=== PATIENT | male | born 1940 | race Caucasian/White ===

== ENCOUNTER 2017-06-14 09:03 | Inpatient (IN) | payer MEDICARE, OTHER, BC ==
[~2017-06-14] VITALS: Ht 172.7 cm; Wt 92.0 kg
[~2017-06-14 09:03] MED LIST: ASPI-183 PO; AZIT500T2 PO; COEN1CAP PO; FLUT1SPR5 EACH NARE; LACTCAP8 PO; LIPI10TA PO; MULTTAB67 PO; PRED10PA2 PO; PROC90TA PO; TIMO0.5S30 RIGHT EYE; VENTAER INH; [UNRECOGNIZED DRUG - OTHER]
[2017-06-14 09:08] VITALS: BP 153/52; PULSE 35; RESP 17; TEMP 97.7; O2SAT 97
--- NOTE | 2017-06-14 10:03 | RADRPT ---
EXAM DATE/TIME: 06/14/2017 09:34 [place] COMPARISON: CHEST PA & LAT, March 23, 2017, 8:26. INDICATIONS : Chest pain MEDICAL HISTORY : SURGICAL HISTORY : None. ENCOUNTER: Initial ACUITY: 1 day PAIN SCORE: 0/10 LOCATION: chest FINDINGS: PA and lateral views of the chest demonstrate the lungs to be symmetrically aerated without evidence of mass, infiltrate or effusion. There is hypertension bilaterally. The cardiomediastinal contours a re unremarkable. Osseous structures are intact. No significant changes compared to the prior study. CONCLUSION: No acute disease. No significant change has occurred. Rudy Tijerina MD on June 14, 2017 at 10:01 Board Certified Radiologist. This report was verified electronically.
[2017-06-14 10:07] VITALS: O2SAT 100
--- NOTE | 2017-06-14 10:10 | PD ---
HPI Chief Complaint: Cardiac Complaint Time Seen by Provider: 10:02 Travel History International Travel<30 days: No Contact w/Intl Traveler<30days: No Traveled to known affect area: No History of Present Illness HPI 76-year-old male presents with one-month history of shortness of breath. He states that his heart rate has also been low. He states he went to Dr. Nix's office today and was advised to come straight here. Paperwork from the office states that patient has a complete heart block and there is concern with his aortic stenosis that he is also having issues with heart failure. Patient denies any other concurrent complaints other than generalized weakness. He feels worse when he moves around. He denies other modifying factors. Quality is hard to catch breath. Severity is progressive. His heart rate in the office was in the 30s. PFSH Past Medical History Arthritis: Yes (LEFT KNEE) Asthma: No Heart Rhythm Problems: No Cancer: No Cardiovascular Problems: No (PRINZMETAL ANGINA) High Cholesterol: Yes (LIPITOR) Chest Pain: Yes (PRINZMETAL ANGINA) Congestive Heart Failure: No COPD: No Cerebrovascular Accident: No Diabetes: No Endocrine: No Genitourinary: No Hepatitis: No Hiatal Hernia: No Immune Disorder: No Musculoskeletal: No Neurologic: No Psychiatric: No Respiratory: No Migraines: No Seizures: No Sleep Apnea: No Thyroid Disease: No Past Surgical History Abdominal Surgery: Yes (APPY) AICD: No Cardiac Surgery: No Ear Surgery: No Endocrine Surgery: No Eye Surgery: No Genitourinary Surgery: No Gynecologic Surgery: No Joint Replacement: Yes (RIGHT KNEE) Oral Surgery: Yes (TONSILLECTOMY) Pacemaker: No Thoracic Surgery: No Social History Tobacco Use: No Substance Use: No Allergies-Medications (Allergen,Severity, Reaction): Coded Allergies: No Known Drug Allergies (Verified Allergy, Unknown, 06/14/17) Reported Meds & Prescriptions Reported Meds & Active Scripts Active Prednisone (48) 10 mg tab Dose Pack (Prednisone) 10 Mg Dspk 10 Mg PO DIRECTED Ventolin Hfa 18 GM Inh (Albuterol Sulfate) 90 Mcg/Act Aer 2 Puff INH Q6H PRN With spacer Azithromycin 500 Mg Tab 500 Mg PO DAILY Timolol Opth Drops 0.5 % Soln 1 Drop RIGHT EYE BID Reported [nitroglycerin] 0.4 [proctozone] Halobetasol Topical (Halobetasol Propionate) 0.05% Cream [vitamine d] Flonase Nasal Quail (Fluticasone Nasal Quail) 50 Mcg/Act Quail 50 Mcg EACH NARE BID Multiple Vitamin 1 Tab 1 Tab PO DAILY Probiotic (Lactobacillus Acidophilus) 1 Cap Cap 1 Cap PO DAILY Co Q-10 (Coenzyme Q10 (Ubidecarenone)) 100 Mg Cap 1 Cap PO DAILY Procardia XL (Nifedipine) 90 Mg Tab 90 Mg PO DAILY Aspirin 325 Mg Tab 325 Mg PO DAILY Lipitor (Atorvastatin Calcium) 10 Mg Tab 10 Mg PO HS Review of Systems Except as stated in HPI: all other systems reviewed are Neg Physical Exam Narrative GENERAL: 76-year-old male in no apparent distress SKIN: Focused skin assessment warm/dry. HEAD: Atraumatic. Normocephalic. EYES: Pupils equal and round. No scleral icterus. No injection or drainage. ENT: No nasal bleeding or discharge. Mucous membranes pink and moist. NECK: Trachea midline. CARDIOVASCULAR: Bradycardic rate in the 30s. RESPIRATORY: No accessory muscle use. Clear to auscultation. Breath sounds equal bilaterally. GASTROINTESTINAL: Abdomen soft, non-tender, nondistended. MUSCULOSKELETAL: No obvious deformities. No clubbing. No cyanosis. NEUROLOGICAL: Awake and alert. Moves all extremities. Normal speech. Data Data Last Documented VS Vital Signs Date Time Temp Pulse Resp B/P (MAP) Pulse Ox O2 Delivery O2 Flow Rate FiO2 06/14/17 10:09 100 Room Air 06/14/17 09:08 97.7 35 17 153/52 (85) Orders Orders Electrocardiogram (06/14/17 09:11) Complete Blood Count With Diff (06/14/17 09:11) Basic Metabolic Panel (Bmp) (06/14/17 09:11) Ckmb (Isoenzyme) Profile (06/14/17 09:11) Troponin I (06/14/17 09:11) Iv Access Insert/Monitor (06/14/17 09:11) Ecg Monitoring (06/14/17 09:11) Oxygen Administration (06/14/17 09:11) Oximetry (06/14/17 09:11) Prothrombin Time / Inr (Pt) (06/14/17 09:11) Chest, Pa & Lat (06/14/17 09:11) B-Type Natriuretic Peptide (06/14/17 10:02) Echo 2d Comp With Doppler (06/14/17 ) ^ Preps (06/14/17 12:56) ^ Insert Iv (06/14/17 12:56) Diet Npo Except Meds (06/15/17 Breakfast) Sodium Chlor 0.9% 1000 Ml Inj (Ns 1000 M (06/15/17 08:00) Cefazolin Inj (Ancef Inj) (06/15/17 13:00) Vancomycin Inj (Vancomycin Inj) (06/15/17 13:00) Povidone Iod 5% Antisepsis Kit (Betadine (06/14/17 13:00) Mupirocin 2% Nasal Oint (Bactroban Nasal (06/14/17 13:00) Chlorhexidine 2% Cloth (Chlorhexidine 2% (06/14/17 13:00) Consent (06/14/17 12:56) Diet Heart Healthy (06/14/17 Lunch) Labs Laboratory Tests Test 06/14/17 10:05 White Blood Count 3.9 TH/MM3 Red Blood Count 3.52 MIL/MM3 Hemoglobin 10.1 GM/DL Hematocrit 30.5 % Mean Corpuscular Volume 86.6 FL Mean Corpuscular Hemoglobin 28.8 PG Mean Corpuscular Hemoglobin Concent 33.2 % Red Cell Distribution Width 17.2 % Platelet Count 185 TH/MM3 Mean Platelet Volume 9.3 FL Neutrophils (%) (Auto) 50.7 % Lymphocytes (%) (Auto) 43.2 % Monocytes (%) (Auto) 3.6 % Eosinophils (%) (Auto) 0.8 % Basophils (%) (Auto) 1.7 % Neutrophils # (Auto) 2.0 TH/MM3 Lymphocytes # (Auto) 1.7 TH/MM3 Monocytes # (Auto) 0.1 TH/MM3 Eosinophils # (Auto) 0.0 TH/MM3 Basophils # (Auto) 0.1 TH/MM3 CBC Comment DIFF FINAL Differential Comment Prothrombin Time 12.7 SEC Prothromb Time International Ratio 1.3 RATIO Blood Urea Nitrogen 18 MG/DL Creatinine 1.01 MG/DL Random Glucose 101 MG/DL Calcium Level 8.7 MG/DL Sodium Level 140 MEQ/L Potassium Level 4.4 MEQ/L Chloride Level 107 MEQ/L Carbon Dioxide Level 26.4 MEQ/L Anion Gap 7 MEQ/L Estimat Glomerular Filtration Rate 72 ML/MIN Total Creatine Kinase 33 U/L Troponin I LESS THAN 0.02 NG/ML B-Type Natriuretic Peptide 262 PG/ML MDM Medical Decision Making Medical Screen Exam Complete: Yes Emergency Medical Condition: Yes Medical Record Reviewed: Yes (Past history confirmed) Interpretation(s) EKG with complete heart block at 30 without STEMI criteria, ST depression laterally CBC & BMP Diagram 06/14/17 10:05 Calcium Level 8.7 Last 24 hours Impressions Chest X-Ray 06/14/17 0911 Signed Impressions: Service Date/Time: , June 14, 2017 09:34 - CONCLUSION: No acute disease. No significant change has occurred. Rudy Tijerina MD Differential Diagnosis Heart block, RI, CHF Narrative Course EKG here shows complete heart block. We will follow blood work and admit to the hospital for further care After review of blood work will discuss with cardiology Will admit for further care. Patient in agreement to plan Physician Communication Physician Communication dr farr requests echo and to admit with npo after midnight dr tenorio to admit Diagnosis Primary Impression: Complete heart block Additional Impression: Shortness of breath Admitting Information Admitting Physician Requests: Admit Jeaneth Gordon MD Jun 14, 2017 10:10
[2017-06-14 10:46] LABS: BASOPHIL # 0.1 TH/MM3 (0-0.2); BASOPHIL % 1.7 % (0.0-2.0); EOSINOPHIL % 0.8 % (0.0-4.0); HEMATOCRIT 30.5 % (39.0-51.0); HEMOGLOBIN 10.1 GM/DL (13.0-17.0); LYMPH % 43.2 % (9.0-44.0); LYMPHOCYTE # 1.7 TH/MM3 (1.0-4.8); MEAN CELL VOLUME 86.6 FL (80.0-100.0); MEAN CORPUSCULAR HEMOGLOBIN 28.8 PG (27.0-34.0); MEAN CORPUSCULAR HGB CONC 33.2 % (32.0-36.0); MEAN PLATELET VOLUME 9.3 FL (7.0-11.0); MONO % 3.6 % (0.0-8.0); MONOCYTE # 0.1 TH/MM3 (0-0.9); NEUT % 50.7 % (16.0-70.0); PLATELET COUNT 185 TH/MM3 (150-450); RED BLOOD COUNT 3.52 MIL/MM3 (4.50-5.90); RED CELL DISTRIBUTION WIDTH 17.2 % (11.6-17.2); WHITE BLOOD COUNT 3.9 TH/MM3 (4.0-11.0)
[2017-06-14 10:51] LABS: INTERNATIONAL NORMALIZED RATIO 1.3 RATIO; PROTHROMBIN TIME - PATIENT 12.7 SEC (9.8-11.6)
[2017-06-14 11:05] LABS: BICARBONATE 26.4 MEQ/L (21.0-32.0); BLOOD UREA NITROGEN 18 MG/DL (7-18); CALCIUM 8.7 MG/DL (8.5-10.1); CHLORIDE 107 MEQ/L (98-107); CREATININE 1.01 MG/DL (0.60-1.30); GLOMERULAR FILTRATION RATE 72 ML/MIN (>89); GLUCOSE,RANDOM 101 MG/DL (74-106); SODIUM (NA) 140 MEQ/L (136-145)
[2017-06-14 11:09] LABS: TROPONIN I LESS THAN 0.02 NG/ML (0.02-0.05)
[2017-06-14] MEDS ORDERED: proctozone (11:29)
[2017-06-14] MEDS ORDERED: nitroglycerin (11:29)
[2017-06-14] MEDS ORDERED: [UNRECOGNIZED DRUG - CODE] (11:29)
[2017-06-14] MEDS ORDERED: MUPIROCIN 2% OINT 1 APPLIC/GM SYR EACH NARE SCH (13:00)
[2017-06-14] MEDS ORDERED: CHLORHEXIDINE GLUCONATE 2 % 1 PACK (2 CLOTHS) TOPICAL SCH (13:00)
--- NOTE | 2017-06-14 13:24 | HHI.HP ---
[facility] Raul Nix MD Admission Diagnosis complete Heart block Diagnoses: Chief Complaint: Shortness of breath, complete heart block. Sent from the set builder office. Travel History International Travel<30 Days: No Contact w/Intl Traveler <30 Da: No Traveled to Known Affected Are: No History of Present Illness 76-year-old male with a medical history significant for hypertension, hyperlipidemia, osteoarthritis who was sent to the hospital from [facility] office after he was found to be in high degree heart block. Patient reports that over the past month he has been increasingly short of breath. He attributed it to leftover symptoms from a cold he had a month ago. He reports poor exertional status. Heart rate in the low 30s in the emergency room. He is laying in bed currently and states he is comfortable. He denies chest pain or shortness of breath at rest. Inventory Control Analyst has been consulted from the emergency room with plans for pacemaker insertion. Review of Systems Cardiovascular: COMPLAINS OF: Dyspnea on Exertion, DENIES: Chest pain Except as stated in HPI: all other systems reviewed are Neg Past Family Social History Past Medical History Potentially Hyperlipidemia Prinzmetal angina Osteoarthritis Past Surgical History Appendectomy Tonsillectomy Bilateral knee replacement Reported Medications Reported Meds & Active Scripts Active Prednisone (48) 10 mg tab Dose Pack (Prednisone) 10 Mg Dspk 10 Mg PO DIRECTED Ventolin Hfa 18 GM Inh (Albuterol Sulfate) 90 Mcg/Act Aer 2 Puff INH Q6H PRN With spacer Azithromycin 500 Mg Tab 500 Mg PO DAILY Timolol Opth Drops 0.5 % Soln 1 Drop RIGHT EYE BID Reported [nitroglycerin] 0.4 [proctozone] Halobetasol Topical (Halobetasol Propionate) 0.05% Cream [vitamine d] Flonase Nasal Holt (Fluticasone Nasal Holt) 50 Mcg/Act Holt 50 Mcg EACH NARE BID Multiple Vitamin 1 Tab 1 Tab PO DAILY Probiotic (Lactobacillus Acidophilus) 1 Cap Cap 1 Cap PO DAILY Co Q-10 (Coenzyme Q10 (Ubidecarenone)) 100 Mg Cap 1 Cap PO DAILY Procardia XL (Nifedipine) 90 Mg Tab 90 Mg PO DAILY Aspirin 325 Mg Tab 325 Mg PO DAILY Lipitor (Atorvastatin Calcium) 10 Mg Tab 10 Mg PO HS Allergies: Coded Allergies: No Known Drug Allergies (Verified Allergy, Unknown, 06/14/17) Family History Reviewed and found to be noncontributory. Social History Does not use tobacco alcohol. Resides with his . Physical Exam Vital Signs Vital Signs Date Time Temp Pulse Resp B/P (MAP) Pulse Ox O2 Delivery O2 Flow Rate FiO2 06/14/17 10:09 100 Room Air 06/14/17 10:07 100 Room Air 06/14/17 10:07 100 Room Air 06/14/17 09:08 97.7 35 17 153/52 (23) 97 Physical Exam GENERAL: This is a well-nourished, well-developed patient, in no apparent distress. SKIN: No rashes, ecchymoses or lesions. Cool and dry. HEAD: Atraumatic. Normocephalic. No temporal or scalp tenderness. EYES: Pupils equal round and reactive. Extraocular motions intact. No scleral icterus. No injection or drainage. ENT: Nose without bleeding, purulent drainage or septal hematoma. Throat without erythema, tonsillar hypertrophy or exudate. Uvula midline. Airway patent. NECK: Trachea midline. No JVD or lymphadenopathy. Supple, nontender, no meningeal signs. CARDIOVASCULAR: Rate in the low 30s. Regular rhythm. 3 out of 6 MIKALA murmur best heard over the right upper sternal border. RESPIRATORY: Clear to auscultation. Breath sounds equal bilaterally. No wheezes , rales, or rhonchi. GASTROINTESTINAL: Abdomen soft, non-tender, nondistended. No hepato-splenomegaly , or palpable masses. No guarding. MUSCULOSKELETAL: Extremities without clubbing, cyanosis, or edema. No joint tenderness, effusion, or edema noted. No calf tenderness. Negative Homans sign bilaterally. NEUROLOGICAL: Awake and alert. Cranial nerves II through XII intact. Motor and sensory grossly within normal limits. Five out of 5 muscle strength in all muscle groups. Normal speech. Laboratory Laboratory Tests Test 06/14/17 10:05 White Blood Count 3.9 Red Blood Count 3.52 Hemoglobin 10.1 Hematocrit 30.5 Mean Corpuscular Volume 86.6 Mean Corpuscular Hemoglobin 28.8 Mean Corpuscular Hemoglobin Concent 33.2 Red Cell Distribution Width 17.2 Platelet Count 185 Mean Platelet Volume 9.3 Neutrophils (%) (Auto) 50.7 Lymphocytes (%) (Auto) 43.2 Monocytes (%) (Auto) 3.6 Eosinophils (%) (Auto) 0.8 Basophils (%) (Auto) 1.7 Neutrophils # (Auto) 2.0 Lymphocytes # (Auto) 1.7 Monocytes # (Auto) 0.1 Eosinophils # (Auto) 0.0 Basophils # (Auto) 0.1 CBC Comment DIFF FINAL Differential Comment Prothrombin Time 12.7 Prothromb Time International Ratio 1.3 Blood Urea Nitrogen 18 Creatinine 1.01 Random Glucose 101 Calcium Level 8.7 Sodium Level 140 Potassium Level 4.4 Chloride Level 107 Carbon Dioxide Level 26.4 Anion Gap 7 Estimat Glomerular Filtration Rate 72 Total Creatine Kinase 33 Troponin I LESS THAN 0.02 B-Type Natriuretic Peptide 262 Result Diagram: 06/14/17 1005 06/14/17 1005 Imaging Last Impressions Chest X-Ray 06/14/17 0911 Signed Impressions: Service Date/Time: May 09:34 - CONCLUSION: No acute disease. No significant change has occurred. Rudy Tijerina MD Caprini VTE Risk Assessment Caprini VTE Risk Assessment: Mod/High Risk (score >= 2) Caprini Risk Assessment Model Point Value = 1 Point Value = 2 Point Value = 3 Point Value = 5 Age 41-60 Minor surgery BMI > 25 kg/m2 Swollen legs Varicose veins or History of unexplained or recurrent spontaneous Oral contraceptives or hormone replacement Sepsis (< 1 month) Serious lung disease, including pneumonia (< 1 month) Abnormal pulmonary function Acute myocardial infarction Congestive heart failure (< 1 month) History of inflammatory bowel disease Medical patient at bed rest Age 61-74 Arthroscopic surgery Major open surgery (> 45 min) Laparoscopic surgery (> 45 min) Malignancy Confined to bed (> 72 hours) Immobilizing plaster cast Central venous access Age >= 75 History of VTE Family history of VTE Factor V Leiden Prothrombin [id number] Lupus anticoagulant Anticardiolipin antibodies Elevated serum homocysteine Heparin-induced thrombocytopenia Other congenital or acquired thrombophilia Stroke (< 1 month) Elective arthroplasty Hip, pelvis, or leg fracture Acute spinal cord injury (< 1 month) Prophylaxis Regimen Total Risk Factor Score Risk Level Prophylaxis Regimen 0-1 Low Early ambulation 2 Moderate Order ONE of the following: *Sequential Compression Device (SCD) *Heparin 5000 units SQ BID 3-4 Higher Order ONE of the following medications: *Heparin 5000 units SQ TID *Enoxaparin/Lovenox 40 mg SQ daily (WT < 150 kg, CrCl > 30 mL/min) *Enoxaparin/Lovenox 30 mg SQ daily (WT < 150 kg, CrCl > 10-29 mL/min) *Enoxaparin/Lovenox 30 mg SQ BID (WT < 150 kg, CrCl > 30 mL/min) AND/OR *Sequential Compression Device (SCD) 5 or more Highest Order ONE of the following medications: *Heparin 5000 units SQ TID (Preferred with Epidurals) *Enoxaparin/Lovenox 40 mg SQ daily (WT < 150 kg, CrCl > 30 mL/min) *Enoxaparin/Lovenox 30 mg SQ daily (WT < 150 kg, CrCl > 10-29 mL/min) *Enoxaparin/Lovenox 30 mg SQ BID (WT < 150 kg, CrCl > 30 mL/min) AND *Sequential Compression Device (SCD) Assessment and Plan Problem List: (1) Complete heart block ICD Code: I44.2 - Atrioventricular block, complete Status: Acute Plan: Cardiology consulted. Appreciate recommendations. 2D echocardiogram pending. Plan for pacemaker implantation. (2) Aortic stenosis ICD Code: I35.0 - Aortic valve stenosis Status: Acute Plan: 2D echocardiogram pending. (3) Shortness of breath ICD Code: R06.02 - Shortness of breath Status: Acute Plan: Secondary to above. He is okay at rest. Supplemental oxygen as needed. (4) Hypertension ICD Code: I10 - Hypertension Status: Acute Plan: Normally on nifedipine at home. Blood pressure currently normal. Hold off on antihypertensives given bradycardia. Discussed Condition With Dr. Gordon. Physician Certification 2 Midnight Certification Type: Admission for Inpatient Services Order for Inpatient Services The services are ordered in accordance with Medicare regulations or non- Medicare payer requirements, as applicable. In the case of services not specified as inpatient-only, they are appropriately provided as inpatient services in accordance with the 2-midnight benchmark. Estimated LOS (days): 2 days is the estimated time the patient will need to remain in the hospital, assuming treatment plan goals are met and no additional complications. Post-Hospital Plan: Home Problem Qualifiers (1) Hypertension: Qualified Codes: I10 - Essential (primary) hypertension Judith Ruff MD Jun 14, 2017 13:24
[2017-06-14] MEDS ORDERED: LACTULOSE SYRUP 20 GM/30 ML CUP PO PRN (13:30)
[2017-06-14] MEDS ORDERED: SODIUM CHLORIDE 0.9% FLUSH 10 ML FLUSH IV FLUSH PRN (13:30)
[2017-06-14] MEDS ORDERED: SENNOSIDES 8.6 MG TAB PO PRN (13:30)
[2017-06-14] MEDS ORDERED: BISACODYL 10 MG SUPP RECTAL PRN (13:30)
[2017-06-14] MEDS ORDERED: MAGNESIUM HYDROXIDE SUSP 30 ML CUP PO PRN (13:30)
[2017-06-14] MEDS ORDERED: NALOXONE HCL 0.4 MG/ML AMP IV PUSH PRN (13:30)
--- NOTE | 2017-06-14 13:30 | MB ---
cc: Mychal Blanco MD DATE: 06/14/2017 REASON FOR CONSULTATION: Complete heart block. HISTORY OF PRESENT ILLNESS: The patient is a 76-year-old white male, followed in our office by Dr. Raul Nix, with a history of hypertension, hyperlipidemia, suspected aortic stenosis, COPD, who was sent to the office from Dr. Nix's office after EKG showed the patient to be in high degree AV block. The patient states he has experienced increased dyspnea over the past several weeks. He was treated twice for what was felt to be bronchitis initially with improvement in his symptoms. He continues to have overall mild to moderate dyspnea on exertion, particularly when walking up inclines or stairs. Rarely he has lightheadedness lasting a few seconds particularly upon standing. He denies chest pain, pedal edema, paroxysmal nocturnal dyspnea, orthopnea, fevers, palpitations. He also denies a history of rheumatic fever. PAST MEDICAL HISTORY: As above. PAST SURGICAL HISTORY: 1. Appendectomy. 2. Tonsillectomy. 3. Left knee replacement. CARDIAC MEDICATIONS AT HOME: 1. Atorvastatin 10 mg daily. 2. Nifedipine ER 90 mg daily. ALLERGIES: NO KNOWN DRUG ALLERGIES. FAMILY HISTORY: Noncontributory. SOCIAL HISTORY: The patient is a former smoker. There is no history of alcohol abuse. REVIEW OF SYSTEMS: As in the history of present illness, otherwise negative or noncontributory. He also denies headache, abdominal pain, melena, dyspepsia, bright red blood per rectum, cough, wheezing. PHYSICAL EXAMINATION: VITAL SIGNS: His blood pressure is 153/52 with a pulse of 35, respirations 17. GENERAL: He is a well-developed, well-nourished white male, in no acute distress. HEENT/NECK: Jugular venous pressure is normal. Carotid pulses are 2+ bilaterally and without bruits. CHEST: Examination reveals clear lungs mooney. CARDIAC: He has a bradycardic, regular rhythm with a grade 2/6 systolic ejection murmur heard best at the base to the heart. The S2 heart sound is mildly diminished. No gallop is audible. ABDOMEN: He has a soft, nontender abdomen. Bowel sounds are present. There is no definite hepatosplenomegaly. EXTREMITIES: Reveals no clubbing, cyanosis, or edema. LABORATORY DATA: Includes WBC 3.9, hemoglobin 10.1, platelets 185. Potassium 4.4, BUN 18, creatinine 1.01. Brain natriuretic peptide level 262. CK 33. Chest x-ray shows no acute disease. EKG shows sinus bradycardia with complete heart block, nonspecific intraventricular conduction delay, left anterior fascicular block. IMPRESSION: Symptomatic complete heart block in a 76-year-old white male with a history of aortic stenosis, hypertension, hyperlipidemia. At this time, he remains in high degree AV block with heart rates in the 30s. He does have normal blood pressures at this time. I suspect much of his dyspnea recently is due to the bradycardia. He also experiences rare lightheadedness without syncope or near-syncope. Echocardiogram is pending. I suspect his aortic stenosis is at most moderate. I have recommended he undergo permanent pacemaker implantation. The nature of this procedure and the potential risks including, but not limited to cardiac perforation, bleeding, infection, pneumothorax have been outlined to the patient who agrees to proceed. RECOMMENDATIONS: 1. Await his 2D echo. 2. Permanent pacemaker implantation tomorrow. Unfortunately I could not get it on the operating room schedule today. MD TASHA Soni/HUMERA , 12:56 PM , 01:29 PM MTDRick
[2017-06-14 13:32] VITALS: BP 124/62; PULSE 35; RESP 17; O2SAT 100
[2017-06-14 18:18] VITALS: BP 168/74; PULSE 40; RESP 17; O2SAT 97
[2017-06-14 20:16] VITALS: BP 149/67; PULSE 40; RESP 16; O2SAT 95
[2017-06-14] MEDS: SODIUM CHLORIDE 0.9% FLUSH 10 ML FLUSH IV FLUSH SCH (22:25)
[2017-06-15] VITALS (11 sets, daily range): BP systolic 159–182; BP diastolic 72–88; PULSE 35–64; RESP 16–20; TEMP 98–98.4; O2SAT 94–99
[2017-06-15 07:29] LABS: HEMATOCRIT 26.5 % (39.0-51.0); HEMOGLOBIN 8.9 GM/DL (13.0-17.0); MEAN CELL VOLUME 85.3 FL (80.0-100.0); MEAN CORPUSCULAR HEMOGLOBIN 28.7 PG (27.0-34.0); MEAN CORPUSCULAR HGB CONC 33.6 % (32.0-36.0); PLATELET COUNT 154 TH/MM3 (150-450); RED BLOOD COUNT 3.11 MIL/MM3 (4.50-5.90); WHITE BLOOD COUNT 3.1 TH/MM3 (4.0-11.0)
[2017-06-15 07:46] LABS: BICARBONATE 24.9 MEQ/L (21.0-32.0); CALCIUM 8.8 MG/DL (8.5-10.1); CREATININE 0.88 MG/DL (0.60-1.30)
[2017-06-15] MEDS: SODIUM CHLOR 0.9% 1000 ML INJ 1,000 ML IV SCH ×2 (09:25→16:00)
[2017-06-15] MEDS: SODIUM CHLORIDE 0.9% FLUSH 10 ML FLUSH IV FLUSH SCH ×2 (09:25→20:15)
--- NOTE | 2017-06-15 10:34 | EKG ---
Date Performed: 06/14/2017 Time Performed: 10:04:01 PTAGE: 76 years EKG: Sinus bradycardia with third degree heart block INTRAVENTRICULAR CONDUCTION DELAY ABNORMAL ECG PREVIOUS TRACING : 02/26/[address]-T changes. This is new compared to the prior study of 02/26/2014. DOCTOR: Alessio Hernández Interpretating Date/Time 06/15/2017 10:32:34
[2017-06-15] MEDS ORDERED: ePHEDrine/NS 25 MG/5 ML SYRINGE IV ONE (12:00)
[2017-06-15] MEDS ORDERED: PROPOFOL 200 MG/20 ML AMP IV ONE (12:00)
[2017-06-15] MEDS ORDERED: LIDOCAINE HCL 1% PF 5 ML SYRINGE OTHER ONE (12:00)
[2017-06-15] MEDS ORDERED: PHENYLEPH/NS 1000 MCG/10 ML SYR IV ONE (12:00)
[2017-06-15] MEDS ORDERED: VANCOMYCIN INJ 1,000 MG in SODIUM CHLOR 0.9% 250 ML INJ 250 ML IV SCH (13:00)
[2017-06-15] MEDS ORDERED: VANCOMYCIN HCL 1000 MG VIAL ONE (13:39)
[2017-06-15] MEDS ORDERED: LIDOCAINE HCL 2% 50 ML VIAL ONE (13:39)
[2017-06-15] MEDS ORDERED: SODIUM CHLOR 0.9% 250 ML INJ 250 ML ONE (13:40)
[2017-06-15] MEDS ORDERED: ceFAZolin INJ 1,000 MG VIAL ONE (13:40)
[2017-06-15] MEDS: POVIDONE IODINE 5% (ANTISEPSIS KIT) 4 APPLICATIONS TOPICAL SCH ×2 (13:50→14:49)
[2017-06-15] MEDS ORDERED: IODIXANOL 320 MG/ML 50 ML VIAL (for EPS) OTHER ONE (13:54)
--- NOTE | 2017-06-15 14:28 | HHI.PR ---
Subjective Remarks Patient is status post dual chamber pacemaker placement. He states he is feeling great. Objective Vitals Vital Signs Date Time Temp Pulse Resp B/P (MAP) Pulse Ox O2 Delivery O2 Flow Rate FiO2 06/15/17 13:04 98.4 35 16 177/77 (110) 94 06/15/17 12:11 06/15/17 07:34 35 17 180/82 (114) 94 Room Air 06/15/17 01:44 37 16 182/88 (119) 97 Room Air 06/14/17 20:16 40 16 149/67 (94) 95 Room Air 06/14/17 18:18 40 17 168/74 (105) 97 Room Air Result Diagram: 06/15/17 0605 06/15/17 0605 Imaging Last Impressions Chest X-Ray 06/15/17 1513 Signed Impressions: Service Date/Time: Thursday, June 15, 2017 15:38 - CONCLUSION: 1. Interval placement of left subclavian transvenous pacer with no pneumothorax. 2. New hazy alveolar opacities of concern for early pulmonary edema. Inocente Balderrama MD Objective Remarks GENERAL: This is a well-nourished, well-developed patient, in no apparent distress. CARDIOVASCULAR: Regular rate and rhythm without murmurs, gallops, or rubs. Post op dressing appear clean. RESPIRATORY: Clear to auscultation. Breath sounds equal bilaterally. No wheezes , rales, or rhonchi. GASTROINTESTINAL: Abdomen soft, non-tender, nondistended. Normal active bowel sounds MUSCULOSKELETAL: Extremities without clubbing, cyanosis, or edema. NEURO: Alert & Oriented x4 to person, place, time, situation. Moves all ext x4 A/P Problem List: (1) Complete heart block ICD Code: I44.2 - Atrioventricular block, complete Status: Acute Plan: Cardiology following 2D echocardiogram pending. s/p dual chamber pacemaker implantation. Rep to check device in AM. (2) Aortic stenosis ICD Code: I35.0 - Aortic valve stenosis Status: Chronic Plan: 2D echocardiogram pending. (3) Shortness of breath ICD Code: R06.02 - Shortness of breath Status: Acute Plan: Secondary to above. Mild pulmonary vascular congestion on X-ray today. Stop IVF. Encourage IS. Mobilize. (4) Hypertension ICD Code: I10 - Hypertension Status: Chronic Plan: Normally on nifedipine at home. Started on Metoprolol. Monitor trend. Discharge Planning Plan to discharge in AM. Rep to check device in AM. Problem Qualifiers (1) Aortic stenosis: Qualified Codes: I35.0 - Nonrheumatic aortic (valve) stenosis (2) Hypertension: Qualified Codes: I10 - Essential (primary) hypertension Judith Ruff MD Jun 15, 2017 14:28
[2017-06-15] MEDS ORDERED: MIDAZOLAM HCL 2 MG/2 ML VIAL ONE (15:14)
[2017-06-15] MEDS ORDERED: traMADol HCL 50 MG TAB PO PRN (15:15)
--- NOTE | 2017-06-15 15:21 | PD.CARD.PN ---
Subjective Subjective Remarks No cardiovascular complaints today. Objective Medications Current Medications Medications (Trade) Dose Ordered Sig/Rhina Route Start Time Stop Time Status Last Admin Sodium Chloride 1,000 ml @ 125 mls/hr Q8H IV 06/15/17 08:00 06/15/17 09:25 Cefazolin Sodium 1000 mg/Sodium Chloride 100 ml @ 200 mls/hr CALENDER FEEDER IV 06/15/17 13:00 Vancomycin HCl 1000 mg/Sodium Chloride 250 ml @ 250 mls/hr CALENDER FEEDER IV 06/15/17 13:00 (Betadine 5% Antisepsis Kit) 1 applic CALENDER FEEDER TOPICAL 06/14/17 13:00 06/15/17 13:50 (Bactroban Nasal 2% Oint) 1 applic CALENDER FEEDER EACH NARE 06/14/17 13:00 (Chlorhexidine 2% Cloth) 1 pack CALENDER FEEDER TOPICAL 06/14/17 13:00 (NS Flush) 2 ml UNSCH PRN IV FLUSH 06/14/17 13:30 (NS Flush) 2 ml BID IV FLUSH 06/14/17 21:00 06/15/17 09:25 (Narcan Inj) 0.4 mg UNSCH PRN IV PUSH 06/14/17 13:30 (Milk Of Magnesia Liq) 30 ml Q12H PRN PO 06/14/17 13:30 (Senokot) 17.2 mg Q12H PRN PO 06/14/17 13:30 (Dulcolax Supp) 10 mg DAILY PRN RECTAL 06/14/17 13:30 (Lactulose Liq) 30 ml DAILY PRN PO 06/14/17 13:30 Vancomycin HCl 1000 mg/Sodium Chloride 250 ml @ 0 mls/hr ONCE IV 06/16/17 03:30 UNV (Ultram) 50 mg Q6HR PRN PO 06/15/17 15:15 UNV Vital Signs / I&O Vital Signs Date Time Temp Pulse Resp B/P (MAP) Pulse Ox O2 Delivery O2 Flow Rate FiO2 06/15/17 13:04 98.4 35 16 177/77 (110) 94 06/15/17 12:11 06/15/17 07:34 35 17 180/82 (114) 94 Room Air 06/15/17 01:44 37 16 182/88 (119) 97 Room Air 3/29/18 20:16 40 16 149/67 (94) 95 Room Air 06/14/17 18:18 40 17 168/74 (105) 97 Room Air Physical Exam GENERAL: Well developed, well nourished. No acute distress. HEENT: Jugular venous pressure is normal. CHEST: Lungs clear to auscultation anteriorly. CARDIAC: Regular rate and rhythm without S3, S4. II/ MIKALA base, mildly diminished S2. ABDOMEN: Soft, nontender, no hepatosplenomegaly. Bowel sounds present. EXTREMITIES: No clubbing, cyanosis, or edema. Laboratory Laboratory Tests Test 06/15/17 06:05 White Blood Count 3.1 TH/MM3 Red Blood Count 3.11 MIL/MM3 Hemoglobin 8.9 GM/DL Hematocrit 26.5 % Mean Corpuscular Volume 85.3 FL Mean Corpuscular Hemoglobin 28.7 PG Mean Corpuscular Hemoglobin Concent 33.6 % Red Cell Distribution Width 17.0 % Platelet Count 154 TH/MM3 Mean Platelet Volume 9.0 FL Blood Urea Nitrogen 17 MG/DL Creatinine 0.88 MG/DL Random Glucose 93 MG/DL Calcium Level 8.8 MG/DL Sodium Level 141 MEQ/L Potassium Level 4.1 MEQ/L Chloride Level 107 MEQ/L Carbon Dioxide Level 24.9 MEQ/L Anion Gap 9 MEQ/L Estimat Glomerular Filtration Rate 85 ML/MIN Assessment and Plan Problem List: (1) Complete heart block ICD Codes: I44.2 - Atrioventricular block, complete Status: Acute Plan: Patient s/p DDD pacer implant today. Pacer rep to recheck pacer in am, discharge if pacing parameters good and stable from today. One week f/u in our office for wound and pacer recheck. (2) Aortic stenosis ICD Codes: I35.0 - Aortic valve stenosis Status: Chronic Plan: Echo still pending. Work up can be done as outpatient. (3) Hypertension ICD Codes: I10 - Hypertension Status: Chronic Plan: Mostly hypertensive. Recommend start metoprolol 50 mg bid. Code Status full code Discussed Condition With patient's Problem Qualifiers (1) Aortic stenosis: Qualified Codes: I35.0 - Nonrheumatic aortic (valve) stenosis (2) Hypertension: Qualified Codes: I10 - Essential (primary) hypertension Mychal Blanco MD Jun 15, 2017 15:21
--- NOTE | 2017-06-15 15:23 | CATHPROC ---
Patient Name: LEONORA MALDONADO Study #: [id number] Initial MD: Mychal Blanco Date of : 1940 Study Date: 06/15/2017 Cardiac Catheterization Report 06/21/2017 7:27:56 AM Financial #: [id number] 1 of 9 Patient Name: LEONORA MALDONADO Study #: [id number] Initial MD: Mychal Blanco Date of : 1940 Study Date: 06/15/2017 Entire Case Report Patient Information Patient Name LEONORA MALDONADO Date of 1940 Age 76 years Financial # [id number] Gender M AlternateID Lab Number 6 Room Number 247 Height (in) 68.0 Height (cm) 172.7 BSA 2.04 Weight (lbs) 198.0 Weight (kg) 90.0 Patient Address/Phone Number Home Address [facility] Home Phone Number [facility] [address] [facility] [phone] Study Information Study Number Admission Scheduled Start Study Start [id number] Jun 14 2017 1:10PM 06/15/2017 Jun 15 2017 1:10PM [place] [facility] Cardiac Pacer/ICD Admit Source Facility Department Other [facility] - Orthopaedic Nurse Physician and Clinical Staff Initial Mychal Hernandes Gas Refrigerator Servicer Simran Stephens,RT(R) Other Anesthesia, BRANCHER Recorder Henna Shafer,RALPH Scrub Radha Sheriff,BACK JOINER TECH2 Procedures Performed Procedure Location (Site) Vessel Name Lead Insertion Venogram Subclav. Vein (Lft Subclavian Vein 06/21/2017 7:27:56 AM Financial #: [id number] 2 of 9 Patient Name: LEONORA MALDONADO Study #: [id number] Initial MD: Mychal Blanco Date of : 1940 Study Date: 06/15/2017 Equipment Time Centrifuge Operator Description Size Mfg Part Number Used/Scraped 14:35 BIOTRONIK LEAD, SOLIA 60 PRO MRI * [id number] Used 14:41 BIOTRONIK LEAD, SOLIA 60 53 PRO MRI * [id number] Used PACEMAKER, ENDORA 8 DR-T PRO 07:26 BIOTRONIK DDDR [id number] Used MRI [id number] 13:38 MEDLINE INDUSTRIES SUTURE, STRIP PLUS 1/2" * Used *[id number] 13:38 MEDLINE PACER ADHESIVE, MASTISOL 2/3CC 2/3CC 0523-48 Used 13:38 MEDLINE PACER CHAMBERS, LIMB * 2530 *[id number] Used [id number] 13:38 MEDLINE PACER PACK, PACER CUSTOM * Used *[id number] 13:38 MEDLINE PACER PEN, SKIN DUAL W/ RULER * Used *[id number] 14:21 FIRE1 PACER SAFE SHEATH, FR7, 13CM FR 7 [id number] Used 14:21 FIRE1 PACER SAFE SHEATH, FR7, 13CM FR 7 [id number] Used 14:16 Needle Sponge Count 2 22 Used 14:16 Needle Sponge Count 25 1 Used 14:16 Needle Sponge Count 4 4 Used 14:28 NYCOMED OMNIPAQUE, 300 MG, 50ML 50ML [id number] Used [id number] *[id number] SUTURE, 3-0 VICRYL [SH] ([id number]) SUTURE, 3-0 VICRYL [SH] ([id number]) SUTURE, 4-0 MONOCRYL [PS2] (Y496G) [id number] 13:38 [employer] BL[employer]ET,WARM AIR CCL * Used *[id number] [facility] PAD, ELECTROSURGICAL 13:38 * [id number] *[id number] Used SURGICAL GROUNDING ORANGE 0808-2120 13:38 ZOLL MEDICAL BUSTER. / * Used *49542 Equipment Model, Serial, Lot Number and Expiration Data Description Model Number Serial Number Lot Number Expiration Date LEAD, SOLIA 60 PRO MRI [id number] 10-16-2018 LEAD, SOLIA 60 53 PRO MRI [id number] 02-15-2019 PACEMAKER, ENDORA 8 DR-T PRO [id number] 07-16-2018 MRI 06/21/2017 7:27:56 AM Financial #: [id number] of 9 Patient Name: LEONORA MALDONADO Study #: [id number] Initial MD: Mychal Blanco Date of : 1940 Study Date: 06/15/2017 Insurance Information Insurance Payor Medicare Third Libertarian Third Libertarian Number MEDICARE A B MCRAB History: Allergies Allergy Reaction No Known Drug Allergies History: Risk Factors Hypertension Dyslipidemia Yes Yes Labs Hgb (g/dl) Hct (%) RBC (MIL/MM3) WBC (l/cumm) Platelets (thousands) 11.60-17.00 35.00-51.00 4.00-5.90 4.00-11.00 150.00-450.00 8.9 26 3.1 3.1 154 Glucose (mg/dl) BUN (mg/dl) Creatinine (mg/dl) BUN:Creatinine (1:x) 74.00-106.00 7.00-18.00 0.50-1.30 10.00-20.00 93 17 0.8 21.3 Na (meq/l) K (meq/l) 136.00-145.00 3.50-5.10 141 4.1 INR (PTT:PT) 0.90-1.10 1.3 Medication Medication Total Dose (Bolus/Oral) Medication Total Dosage/Unit 2% XYLOCAINE 50 mL Medications (Bolus/Oral) Medication Time Given Dosage/Unit Administered By Reason 2% XYLOCAINE 06/15/2017 2:26:55 PM 50 mL Mychal Blanco 50 mL 2% XYLOCAINE given in lab by Mychal Blanco in Left upper chest via Subcutaneous. 06/21/2017 7:27:56 AM Financial #: [id number] 4 of 9 Patient Name: LEONORA MALDONADO Study #: [id number] Initial MD: Mychal Blanco Date of : 1940 Study Date: 06/15/2017 Initial Case Assessment Cardiovascular HR Rhythm NIBP Chest Pain 36 chb 184/79 0 Edema Present Skin color Skin None Normal Warm Dry Circulatory - Right Pulses Radial 1 Scale (0,1,2,3,4,d) Circulatory - Left Pulses Radial 1 Scale (0,1,2,3,4,d) Circulatory - Lower Extremities Color Lower Right Color Lower Left Normal Normal Neurological State Oriented to time-place- Alert Moves all extremities person Respiration - General Respiration Rate SpO2 (%) (B/min) 20 99 06/21/2017 7:27:56 AM Financial #: [id number] 5 of 9 Patient Name: LEONORA MALDONADO Study #: [id number] Initial MD: Mychal Blanco Date of : 1940 Study Date: 06/15/2017 Final Case Assessment Cardiovascular HR Rhythm NIBP 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 13:54:36 Patient Name, D.O.B, / Armband Verified By R.N. 13:54:36 Consent signed by the physician and the patient and verified by the Orthopaedic Nurse staff. 13:54:37 Pre-op and post- op instructions given; patient acknowledges understanding of instructions. 13:54:38 Verbal Stimulation=2 Physical Stimulation=2 Airway=2 Respiration=2 TOTAL=8. (0=absent, 1=li mited, 2=present) 13:54:49 Patient has been NPO for More than 6Hrs. 13:54:50 Skin Breakdown-none per pt 13:54:58 Patient Warmer Placed on the Table. 13:54:59 Disposable Defibrillator Pads Placed On Patient. 06/21/2017 7:27:56 AM Financial #: [id number] 6 of 9 Patient Name: LEONORA MALDONADO Study #: [id number] Initial MD: Mychal Blanco Date of : 1940 Study Date: 06/15/2017 13:54:59 Danny Prominences Protected 13:55:01 A # 20 IV was noted in the Antecubital (left). Grade = 0 0.9ns kvo 13:55:02 A # 20 IV was noted in the Antecubital (right). Grade = 0 0.9ns kvo 13:55:03 History and physical on the chart or being dictated. 14:05:20 Anesthesia at bedside. Assumes care of patient. Assessment: Initial Case, HR=36 BPM, Rhythm=chb, FDMM=338/79 mmhg, Chest Pain=0, Edema=None, Color=Normal, Skin = Warm, Dry Right Pulses: Radial=1 Left Pulses: Radial=1 14:14:55 Lower Right Extremities: Color=Normal Lower Left Extremities: Color=Normal Neurological: State=Alert, Ox3, CRONIN Respiration: Resp=20 B/min, SpO2=99 % 14:15:28 Table restraints applied according to hospital policy 14:15:35 Bovie ground pad applied to: right thigh 14:15:44 Upper Chest Prepped Times Two. First Sponge And Instrument Count Done by Radha Sheriff, BACK JOINER TECH2. 14:15:56 Hypo's: 4, Sponges: 25, Bovie/scratch: 2 Sutures: 6, Blades: 2, Instruments: 26, Syveck Patches: ~SYVECK PATCH~ 14:20:52 MD paged 14:22:51 MD arrived. Time Out. Correct patient, procedure, procedure equipment, site and side verified with physicia n present. Time 14:26:07 concurred by MD, individual staff and BRANCHER. Time Out #2 - Consents verified, patient in correct position, all results are labled and displa yed, safety precautions 14:26:24 taken, antibiotics administered. Time out concurred by MD, individual staff and BRANCHER in procedu re 14:26:41 Case Start 14:26:55 50 mL 2% XYLOCAINE given in lab by Mychal Blanco in Left upper chest via Subcutaneous. 14:27:44 The Subclav. Vein (Lft was manually injected with 20 cc's of contrast. OMNIPAQUE, 300 MG, 5 0ML 50ML used. 14:28:49 Reference ECG taken 14:29:04 Surgical Incision Made. 14:30:44 Vascular access was obtained in the Subclav. Vein (Lft. 14:30:51 Wire inserted 14:31:05 Vascular access was obtained in the Subclav. Vein (Lft. 14:31:10 Wire inserted 14:33:01 A SAFE SHEATH, FR7, 13CM FR 7 was advanced into the Subclav. Vein (Lft using the Modified S eldinger technique. 14:34:19 A LEAD, SOLIA 60 PRO MRI * was inserted and positioned in the RV. 14:35:18 Lead placement verified under fluoroscopy 14:37:37 The RV lead impedance and threshold being tested. 14:39:00 The RV lead was sutured to the fascia. 14:39:41 A SAFE SHEATH, FR7, 13CM FR 7 was advanced into the Subclav. Vein (Lft using the Modified S eldinger technique. 14:40:04 A LEAD, SOLIA 60 53 PRO MRI * was inserted and positioned in the RA. Solia S 53 ProMRI 06/21/2017 7:27:56 AM Financial #: [id number] 7 of 9 Patient Name: LEONORA MALDONADO Study #: [id number] Initial MD: Mychal Blanco Date of : 1940 Study Date: 06/15/2017 14:41:25 Lead placement verified under fluoroscopy 14:44:43 The Atrial lead impedance and threshold is being tested. 14:45:03 The Atrial lead was sutured to the fascia. 14:45:31 A implantable EDORA 8 DR-T PROMRI pacemaker was connected and placed in the pocket. Second Sponge And Instrument Count Done by Radha Sheriff, BACK JOINER TECH2. 14:52:00 Hypo's: 4, Sponges: 25, Bovie/scratch: 2 Sutures: 6, Blades: 2, Instruments: ~INSTRU~, Syveck Patches: ~SYVECK PATCH~ 14:52:53 Gómez powder in pocket. 14:56:10 Implant Procedure was performed. 14:56:17 A PPM Implant . (Dual) 15:07:59 Implantable Device card placed in patient's chart. 15:10:55 CICU called. Spoke to Charissa 15:11:04 Bedside Report will be given. 15:17:30 The pocket was closed. 15:18:00 Case End Final Sponge And Instrument Count Done by Radha Sheriff, BACK JOINER TECH2. 15:18:47 Hypo's: 4, Sponges: 25, Bovie/scratch: 2 Sutures: 6, Blades: 2, Instruments: 26, Syveck Patches: ~SYVECK PATCH~ 15:18:58 Sterile dressing applied to site 15:19:00 No case complications noted. 15:19:02 Cine recording checked. 15:19:06 Defibrillator and ground pads removed. Skin intact. 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, QWQJ=348/74 mmhg, Chest Pain=0, Edema=None, [place] r=Normal, Skin = Warm, Dry Right Pulses: Radial=1 Left Pulses: Radial=1 15:19:10 Lower Right Extremities: Color=Normal Lower Left Extremities: Color=Normal Neurological: State=Lethargic, Ox3, CRONIN Respiration: Resp=16 B/min, SpO2=92 % 15:29:14 Patient moved to stretcher End Study - Contrast Media Used In Study Contrast Total Opened (mL) Total Used (mL) Total Wasted (mL) Omnipaque 50 20 30 End Study - Maximum Contrast Load Max Contrast Load (mL) 562.5 06/21/2017 7:27:56 AM Financial #: [id number] Patient Name: LEONORA MALDONADO Study #: [id number] Initial MD: Mychal Blanco Date of : 1940 Study Date: 06/15/2017 End Study - Radiation Exposure Fluoro Time (minutes) 3.3 End Study - Patient Disposition Complications Transferred To Interventional Outcome No Telemetry Bed successful 06/21/2017 7:27:56 AM Financial #: [id number]
--- NOTE | 2017-06-15 15:24 | MP ---
cc: Mychal Blanco MD, Alan S MD DATE OF OPERATION: 06/15/2017 PROCEDURE PERFORMED: Dual chamber permanent pacemaker implantation via the left subclavian vein. INDICATIONS: Symptomatic complete heart block. OPERATIVE NOTE: The patient was brought to the operating suite in a fasting state after having signed informed consent. The left upper chest was prepped and draped as per policy and anesthetized with 1% lidocaine. A transverse incision was made inferior to the left clavicle and using blunt dissection, a subcutaneous pocket was formed down to the pectoralis fascia. After administration of contrast through a left arm peripheral IV, central venous access was obtained twice without difficulty, via the left subclavian vein using modified Seldinger technique. Over the more lateral guidewire a 7-Gambian sheath was placed and through this sheath, a ventricular active fixation lead was introduced and its tip positioned in the right ventricular apex where a good current of injury, stimulation threshold (0.8 volts) and sensitivity (8.1 millivolts) were demonstrated. This lead was secured into place using 2-0 silk ties down to the pectoralis fascia. Over the remaining guidewire, another 7-Gambian sheath was placed and through this sheath an atrial active fixation lead was introduced and its tip positioned in the right atrial appendage where good current of injury, stimulation threshold (0.7 volts) and sensitivity (1.3 millivolts) were demonstrated. This lead was secured into place using 2-0 silk ties down to the pectoralis fascia. The leads were then connected to the pacemaker generator, which is a Biotronik Edora device. The leads and the generator were placed into the subcutaneous pocket, which was closed using 3-0 Vicryl interrupted stitches in 2 layers to close the subcutaneous tissue and then 4-0 Monocryl running stitch to close the subcuticular tissue. Overlapping Steri-Strips and a dressing were applied. There were no apparent, immediate complications. A portable chest x-ray is pending at the time of this dictation. CONCLUSIONS: Successful dual-chamber permanent pacemaker implantation via the left subclavian vein using a Biotronik Edora pacemaker generator. MD TASHA Soni/HUMERA , 03:09 PM , 03:23 PM RAMESH
--- NOTE | 2017-06-15 16:11 | RADRPT ---
EXAM DATE/TIME: 06/15/2017 15:38 [place] COMPARISON: CHEST PA & LAT, June 14, 2017, 9:34. INDICATIONS : Evalaute for pneumothorax status post pacemaker placement. MEDICAL HISTORY : None. SURGICAL HISTORY : None. ENCOUNTER: Initial ACUITY: 1 day PAIN SCORE: 3/10 LOCATION: chest FINDINGS: A single AP semierect portable view the chest was obtained demonstrates interval placement of a left clavian transvenous pacer with no evidence of pneumothorax. There are new hazy perihilar and bibasila r opacities greater on the left than the right. The tip of the ventricular lead extends off the film. The heart size is at the upper limits of normal. There is no effusion. CONCLUSION: 1. Interval placement of left subclavian transvenous pacer with no pneumothorax. 2. New hazy alveolar opacities of concern for early pulmonary edema. Inocente Balderrama MD on June 15, 2017 at 16:08 Board Certified Radiologist. This report was verified electronically.
[2017-06-15] MEDS ORDERED: cloNIDine HCL 0.1 MG TAB PO PRN (18:00)
[2017-06-15] MEDS: METOPROLOL TARTRATE 50 MG TAB PO SCH (20:15)
[2017-06-16] VITALS (12 sets, daily range): BP systolic 161–163; BP diastolic 74–82; PULSE 60–64; RESP 18–20; TEMP 98.2–98.6; O2SAT 90–94
[2017-06-16] MEDS ORDERED: VANCOMYCIN INJ 1,000 MG in SODIUM CHLOR 0.9% 250 ML INJ 250 ML IV SCH (03:30)
[2017-06-16] MEDS ORDERED: LEVOFLOXACIN 500 MG TAB PO SCH (09:00)
[2017-06-16] MEDS ORDERED: NIFEdipine 90 MG SUSTAINED RELEASE TAB PO SCH (09:00)
[2017-06-16] MEDS ORDERED: TRAM50 PO (09:15)
[2017-06-16] MEDS ORDERED: METO-309 PO (09:15)
[2017-06-16] MEDS ORDERED: LEVA500T33 PO (09:15)
--- NOTE | 2017-06-16 09:16 | HHI.DS ---
Discharge Summary Admission Date Jun 14, 2017 at 13:10 Discharge Date: Jun 16, 2017 Admitting Diagnosis complete Heart block (1) Complete heart block ICD Code: I44.2 - Atrioventricular block, complete Status: Acute (2) Aortic stenosis ICD Code: I35.0 - Aortic valve stenosis Status: Chronic (3) Shortness of breath ICD Code: R06.02 - Shortness of breath Status: Acute (4) Hypertension ICD Code: I10 - Hypertension Status: Chronic Procedures Dual-chamber pacemaker placement by Dr. Blanco Brief History - From Admission 76-year-old male with a medical history significant for hypertension, hyperlipidemia, osteoarthritis who was sent to the hospital from dials supervisor office after he was found to be in high degree heart block. Patient reports that over the past month he has been increasingly short of breath. He attributed it to leftover symptoms from a cold he had a month ago. He reports poor exertional status. Heart rate in the low 30s in the emergency room. He is laying in bed currently and states he is comfortable. He denies chest pain or shortness of breath at rest. City Dispatch Supervisor has been consulted from the emergency room with plans for pacemaker insertion. CBC/BMP: 06/15/17 0605 06/15/17 0605 Significant Findings Laboratory Tests Test 06/14/17 10:05 06/15/17 06:05 White Blood Count 3.9 TH/MM3 (4.0-11.0) 3.1 TH/MM3 (4.0-11.0) Red Blood Count 3.52 MIL/MM3 (4.50-5.90) 3.11 MIL/MM3 (4.50-5.90) Hemoglobin 10.1 GM/DL (13.0-17.0) 8.9 GM/DL (13.0-17.0) Hematocrit 30.5 % (39.0-51.0) 26.5 % (39.0-51.0) Prothrombin Time 12.7 SEC (9.8-11.6) Estimat Glomerular Filtration Rate 72 ML/MIN (>89) 85 ML/MIN (>89) Total Creatine Kinase 33 U/L (39-308) Troponin I LESS THAN 0.02 NG/ML B-Type Natriuretic Peptide 262 PG/ML (0-100) PE at Discharge GENERAL: This is a well-nourished, well-developed patient, in no apparent distress. CARDIOVASCULAR: Regular rate and rhythm without murmurs, gallops, or rubs. Post op dressing appear clean. RESPIRATORY: Clear to auscultation. Breath sounds equal bilaterally. No wheezes , rales, or rhonchi. GASTROINTESTINAL: Abdomen soft, non-tender, nondistended. Normal active bowel sounds MUSCULOSKELETAL: Extremities without clubbing, cyanosis, or edema. NEURO: Alert & Oriented x4 to person, place, time, situation. Moves all ext x4 Pt update on day of discharge Patient reports he is feeling great. He is eager to go home. He denies chest pressure or shortness of breath. Normal heart rate. Hospital Course 76-year-old male admitted and treated for the following: (1) Complete heart block ICD Code: I44.2 - Atrioventricular block, complete Status: Acute Plan: Cardiology following 2D echocardiogram pending. This will be followed outpatient by his dials supervisor. s/p dual chamber pacemaker implantation. (2) Aortic stenosis ICD Code: I35.0 - Aortic valve stenosis Status: Chronic Plan: 2D echocardiogram pending. This will be followed outpatient by his dials supervisor. (3) Shortness of breath ICD Code: R06.02 - Shortness of breath Status: Acute Plan: Secondary to above. Mild pulmonary vascular congestion on X-ray today. Resolved. (4) Hypertension ICD Code: I10 - Hypertension Status: Chronic Plan: Normally on nifedipine at home. Was started on metoprolol. Continue the same. Pt Condition on Discharge: Good Discharge Disposition: Discharge Home Discharge Time: <= 30 minutes Discharge Instructions DIET: Follow Instructions for: Heart Healthy Diet Activities you can perform: Regular-No Restrictions Follow up Referrals: Cardiology with Mychal Blanco MD PCP Follow-up with Deanna Hernández MD New Medications: Levofloxacin (Levaquin) 500 Mg Tablet 500 MG PO DAILY, #4 TAB Metoprolol Tartrate (Lopressor) 50 Mg Tab 50 MG PO Q12HR, #60 TAB Tramadol (Ultram) 50 Mg Tab 50 MG PO Q6HR PRN for PAIN SCALE 4 TO 10, #15 TAB Continued Medications: Albuterol 18 GM Inh (Ventolin Hfa 18 GM Inh) 90 Mcg/Act Aer 2 PUFF INH Q6H PRN for SHORTNESS OF BREATH, #1 INHALER 0 Refills With spacer Aspirin (Aspirin) 325 Mg Tab 325 MG PO DAILY, #30 TAB 0 Refills Atorvastatin (Lipitor) 10 Mg Tab 10 MG PO HS for Cholesterol Management, #30 TAB 0 Refills Coenzyme Q10 (Ubidecarenone) (Co Q-10) 100 Mg Cap 1 CAP PO DAILY Fluticasone Nasal [place] (Flonase Nasal [place]) 50 Mcg/Act [place] 50 MCG EACH NARE BID for Allergies, #1 BOTTLE 0 Refills Halobetasol Topical (Halobetasol Topical) 0.05% Cream Lactobacillus Acidophilus (Probiotic) 1 Cap Cap 1 CAP PO DAILY for Nutritional Supplement, #90 CAP 0 Refills Multiple Vitamin (Multiple Vitamin) 1 Tab 1 TAB PO DAILY for Nutritional Supplement, TAB 0 Refills Nifedipine ER 24 HR (Procardia XL) 90 Mg Tab 90 MG PO DAILY, #30 TAB 0 Refills Timolol Opth Drops (Timolol Opth Drops) 0.5 % Soln 1 DROP RIGHT EYE BID for Glaucoma, #1 BOTTLE 4 Refills Discontinued Medications: Azithromycin (Azithromycin) 500 Mg Tab 500 MG PO DAILY for Infection, #5 TAB 0 Refills Prednisone (48) 10 mg tab Dose Pack (Prednisone (48) 10 mg tab Dose Pack) 10 Mg Dspk 10 MG PO DIRECTED for Inflammation, #1 DSPK 0 Refills Judith Ruff MD Jun 16, 2017 09:16
[2017-06-16] MEDS: METOPROLOL TARTRATE 50 MG TAB PO SCH (09:25)
[2017-06-16] MEDS: SODIUM CHLORIDE 0.9% FLUSH 10 ML FLUSH IV FLUSH SCH (09:26)
--- NOTE | 2017-06-16 11:21 | PD.CARD.PN ---
Subjective Subjective Remarks called by nurse for hematoma. Patient has no complaints- just a little soreness Objective Medications Current Medications Medications (Trade) Dose Ordered Sig/Rhina Route Start Time Stop Time Status Last Admin Cefazolin Sodium 1000 mg/Sodium Chloride 100 ml @ 200 mls/hr C[facility] PERSON IV 06/15/17 13:00 Vancomycin HCl 1000 mg/Sodium Chloride 250 ml @ 250 mls/hr C[facility] PERSON IV 06/15/17 13:00 (Betadine 5% Antisepsis Kit) 1 applic CASH PERSON TOPICAL 06/14/17 13:00 06/15/17 13:50 (Bactroban Nasal 2% Oint) 1 applic CASH PERSON EACH NARE 06/14/17 13:00 (Chlorhexidine 2% Cloth) 1 pack C[facility] PERSON TOPICAL 06/14/17 13:00 (NS Flush) 2 ml UNSCH PRN IV FLUSH 06/14/17 13:30 (NS Flush) 2 ml BID IV FLUSH 06/14/17 21:00 06/16/17 09:26 (Narcan Inj) 0.4 mg UNSCH PRN IV PUSH 06/14/17 13:30 (Milk Of Magnesia Liq) 30 ml Q12H PRN PO 06/14/17 13:30 (Senokot) 17.2 mg Q12H PRN PO 06/14/17 13:30 (Dulcolax Supp) 10 mg DAILY PRN RECTAL 06/14/17 13:30 (Lactulose Liq) 30 ml DAILY PRN PO 06/14/17 13:30 Vancomycin HCl 1000 mg/Sodium Chloride 250 ml @ 0 mls/hr ONCE IV 06/16/17 03:30 06/16/17 15:00 (Ultram) 50 mg Q6HR PRN PO 06/15/17 15:15 06/15/17 18:48 (Levaquin) 500 mg DAILY PO 06/16/17 09:00 06/16/17 09:25 (Lopressor) 50 mg Q12HR PO 06/15/17 21:00 06/16/17 09:25 (Catapres) 0.1 mg Q6H PRN PO 06/15/17 18:00 (Procardia Xl) 90 mg DAILY PO 06/16/17 09:00 06/16/17 09:38 Vital Signs / I&O Vital Signs Date Time Temp Pulse Resp B/P (MAP) Pulse Ox O2 Delivery O2 Flow Rate FiO2 06/16/17 10:00 60 06/16/17 09:00 60 06/16/17 08:00 62 06/16/17 07:47 Room Air 90 06/16/17 07:47 98.2 60 18 163/74 (103) 90 06/16/17 07:00 60 06/16/17 06:00 60 06/16/17 05:00 64 06/16/17 04:00 60 06/16/17 04:00 Room Air 06/16/17 04:00 98.4 60 18 161/75 (103) 94 06/16/17 03:00 62 06/16/17 02:00 61 06/16/17 01:00 63 06/16/17 00:00 Room Air 06/16/17 00:00 60 06/16/17 00:00 98.6 60 20 161/82 (108) 93 06/15/17 23:00 63 06/15/17 22:00 61 06/15/17 21:14 95 21 06/15/17 21:00 62 06/15/17 20:00 64 06/15/17 20:00 Room Air 06/15/17 20:00 98.3 64 20 159/72 (101) 99 06/15/17 18:27 64 06/15/17 16:21 60 06/15/17 16:02 98.0 62 16 168/85 (112) 95 06/15/17 13:04 98.4 35 16 177/77 (110) 94 06/15/17 12:11 I/O 06/15/17 06/15/17 06/15/17 06/16/17 06/16/17 06/16/17 07:00 15:00 23:00 07:00 15:00 23:00 Intake Total 360 ml 480 ml 480 ml Output Total 500 ml 300 ml Balance 360 ml -20 ml 180 ml Intake Oral 360 ml 480 ml 480 ml Output Urine Total 500 ml 300 ml # Bowel Movements 0 1 Physical Exam Alert Chest CTA CV S1S2 RRR, no rub, no S3 Pacer check today OK Ext no edema Pacer wound: suture line intact. Moderate hematoma. Pressure dressing re-applied Imaging Last 24 hours Impressions Chest X-Ray 06/15/17 0073 Signed Impressions: Service Date/Time: Thursday, June 15, 2017 15:38 - CONCLUSION: 1. Interval placement of left subclavian transvenous pacer with no pneumothorax. 2. New hazy alveolar opacities of concern for early pulmonary edema. Inocente Balderrama MD Assessment and Plan Problem List: (1) Complete heart block ICD Codes: I44.2 - Atrioventricular block, complete Status: Acute (2) Aortic stenosis ICD Codes: I35.0 - Aortic valve stenosis Status: Chronic (3) Hypertension ICD Codes: I10 - Hypertension Status: Chronic (4) Pacemaker complications ICD Codes: T82.9XXA - Unspecified complication of cardiac and vascular prosthetic device, implant and graft, initial encounter Plan: Moderate hematoma. Not severe. OK to DC home / Dr. Blanco notified for F/ U. Assessment and Plan DC home; Has F/U in office Problem Qualifiers (1) Aortic stenosis: Qualified Codes: I35.0 - Nonrheumatic aortic (valve) stenosis (2) Hypertension: Qualified Codes: I10 - Essential (primary) hypertension Ricki Krishna MD Jun 16, 2017 11:21
== END 2017-06-16 11:40 | disposition home or self-care (01) | DRG 244 ==
LOC: HCAT 09:03 → NEDA 13:10 → NEDH 06-15 02:38 → HCIS 06-15 12:04
PROVIDERS: ADMIT Family Medicine; ATTEND Family Medicine
PROC: 02H63JZ Insertion of Pacemaker Lead into Right Atrium, Percutaneous Approach (ICD-10-PCS; principal; 2017-06-15)
PROC: 0JH606Z Insertion of Pacemaker, Dual Chamber into Chest Subcutaneous Tissue and Fascia, Open Approach (ICD-10-PCS; 2017-06-15)
PROC: 02HK3JZ Insertion of Pacemaker Lead into Right Ventricle, Percutaneous Approach (ICD-10-PCS; 2017-06-15)
DX: I44.2 Atrioventricular block, complete (principal); I35.0 Nonrheumatic aortic (valve) stenosis; I10 Essential (primary) hypertension; R06.02 Shortness of breath; M19.90 Unspecified osteoarthritis, unspecified site; Z87.891 Personal history of nicotine dependence; Z96.653 Presence of artificial knee joint, bilateral
CPT/HCPCS: 33208; 71045; 71046; 80048; 82550; 83880; 84484; 85025; 85027; 85610; 93005; 99285; C1785; C1898; J0690; J2250; J2370; J3010; J3370; J7030; J7050; Q9967